=== PATIENT | male | born 1960 | race Caucasian/White ===

== ENCOUNTER 2018-12-10 20:10 | Observation (INO) ==
[2018-12-10] MEDS ORDERED: Pantoprazole 40 MG VIAL IVP ONE ×2 (20:15→20:26)
[2018-12-10] MEDS ORDERED: Octreotide 50 MCG/ML INJ IVP ONE (20:15)
[2018-12-10] MEDS ORDERED: cefTRIAXone 1,000 MG in Water for inj. (sterile) 10 ML IVP ONE (20:15)
[2018-12-10] MEDS ORDERED: 0.9 % Sodium Chloride 1,000 ML IVC ONE ×2 (20:15→21:08)
[2018-12-10] MEDS ORDERED: *HR* LORazepam 2 MG/ML VIAL IVP ONE (20:15)
[2018-12-10] MEDS ORDERED: Ondansetron 4 MG/2 ML VIAL IVP ONE (20:18)
--- NOTE | 2018-12-10 20:19 | Emergency Department Note ---
Disposition Clinical Impression: Alcohol withdrawal Qualifiers: Complication of substance-induced condition: with unspecified complication Qualified Code(s): F10.239 - Alcohol dependence with withdrawal, unspecified Gastritis Qualifiers: Gastritis type: alcoholic Chronicity: acute Gastritis bleeding: presence of bleeding unspecified Qualified Code(s): K29.20 - Alcoholic gastritis without bleeding Disposition: Admitted As Inpatient Condition: Good Referrals: Israel Landis DO [Primary Care Provider] - Forms: ED Satisfaction Letter Time of Disposition: 23:15 General Adult HPI - General Stated complaint: vomiting blood Time Seen by Provider: 12/10/18 20:13 Nursing Notes Reviewed: Yes Vital Signs Reviewed: Yes - History of Present Illness HPI Narrative: 57-year-old male presents emergency Department concern for nausea, vomiting, not feeling well. Patient reports being a chronic alcoholic and drinking a pint of vodka daily. Reports that because of the vomiting has not been able to drink as well. Patient states that he typically drinks still he passes out. Patient not complaining of any pain at this time. - Related Data Home Medications Medication Instructions Recorded Confirmed Albuterol Sulfate [Proventil 2 puff IH Q4H PRN 01/25/17 01/25/17 Inhaler] Aspirin 81 mg PO DAILY 01/25/17 01/25/17 Escitalopram [Lexapro] 20 mg PO DAILY 01/25/17 01/25/17 Lisinopril [Zestril] 10 mg PO DAILY 01/25/17 01/25/17 Omeprazole [PriLOSEC] 40 mg PO DAILY 01/25/17 01/25/17 hydroCHLOROthiazide 25 mg PO DAILY 01/25/17 01/25/17 [Hydrochlorothiazide] Previous Rx's Medication Instructions Recorded Tramadol HCl [Ultram] 50 mg PO QID PRN #28 tab 01/25/17 Diclofenac Sodium [Voltaren] 50 mg PO Q8HR PRN #20 tablet. 06/28/18 Allergies Allergy/AdvReac Type Severity Reaction Status Date / Time No Known Allergies Allergy Verified 06/28/18 09:31 All systems ED: reviewed and negative except as stated. Review of Systems: As Per HPI Constitutional: Denies: fever Cardiovascular: Denies: chest pain Respiratory: Denies: dyspnea Gastrointestinal: Reports: nausea, vomiting, other (Coffee-ground emesis) Genitourinary: Denies: urgency, dysuria, frequency Musculoskeletal: Denies: back pain Past Medical History - Past Medical History Attestation: Yes The following information was validated with the patient. Medical history: Reports: hypertension Surgical history: Reports: cholecystectomy Psychiatric history: Reports: anxiety, depression - Social History Smoking Status: Current every day smoker Smokeless Tobacco Status: No Alcohol use: Reports: occasionally Drug use: Reports: none Physical Exam - General Limitations: no limitations General appearance: alert - Head Head exam: normocephalic - Eye Eye exam: Present: EOMI - ENT ENT exam: mucous membranes moist - Neck Neck exam: Present: trachea midline - Chest Chest inspection: Present: symmetric chest wall rise - Respiratory Respiratory exam: Present: normal lung sounds bilaterally - Cardiovascular Cardiovascular exam: Present: normal rhythm, tachycardia, normal heart sounds - Abdominal Exam Abdominal exam: Present: soft, tenderness. Absent: distention, guarding, rebound, rigidity Abdominal tenderness: Present: epigastrium - Extremities Exam Extremities exam: Present: normal capillary refill - Back Exam Back exam: Present: full ROM - Neurological Exam Neurological exam: Present: alert, oriented X3 - Psychiatric Psychiatric exam: Present: normal affect, normal mood - Skin Skin exam: Present: warm, dry, intact, normal color. Absent: rash Course Vital Signs Temperature 98.5 F 12/10/18 20:26 Pulse Rate 134 12/10/18 20:26 Respiratory Rate 21 12/10/18 20:26 Blood Pressure 147/103 12/10/18 20:26 O2 Sat by Pulse Oximetry 97 12/10/18 20:26 Temperature 98.5 F 12/10/18 20:26 Pulse Rate 117 12/10/18 22:01 Respiratory Rate 19 12/10/18 22:01 Blood Pressure 146/93 12/10/18 22:01 O2 Sat by Pulse Oximetry 98 12/10/18 22:01 Oxygen Delivery Oxygen Delivery Room Air Medical Decision Making - [facility] Narrative Medical decision making narrative: 57-year-old male presents to the emergency department concern for coffee-ground emesis, nausea, vomiting. Patient initially tachycardic. He is also hypertensive. At this time, most likely concern for ethanol withdrawal. Because coffee-ground emesis in the setting of a chronic alcoholic, with a tachycardia, initial concern was for the possibility of variceal bleed. Patient has no history of bases prior. Hemoglobin was 18, most likely secondary to dehydration. We did obtain a CT angiogram of the abdomen and pelvis with a possible GI bleed to look for active extravasation. Patient was initially given 80 mg of protonix, octreotide, Rocephin. CT angiogram negative for evidence of active extravasation, dissection, aneurysm of the aorta. There is some evidence of some calcified atherosclerotic plaques. Told the family about these. Spoke with the hospitalist about admission prior to having CT scan results back. Have message him through [facility] to report negative CT findings. Patient started on 150 mL of normal saline per hour for maintenance fluids for his dehydration. Abdomen/Pelvis CTA 12/10/18 22:45 IMPRESSION: No evidence of an abdominal aortic aneurysm or dissection. No contrast extravasation along the included esophagus, stomach or any rales along the included GI tract as a source for upper GI bleeding. Mixed calcified atherosclerotic plaque results in moderate stenosis of the proximal left common iliac artery. Hepatic steatosis. D/ / 12/10/2018 23:00:09 Taye Bustamante / chad Interpreting Provider: Taye Bustamante Chest X-Ray 12/10/18 22:54 IMPRESSION: No acute abnormality identified. D/ / Ja Yancey MD / Ja Yancey MD Interpreting Provider: Ja Yancey MD - Lab Data Result diagrams: 12/10/18 20:39 12/10/18 20:39 Lab Results 12/10/18 12/10/18 12/10/18 Range/Units 20:39 20:39 20:39 WBC 10.1 (4.3-11.1) K/mcL RBC 5.70 H (4.19-5.50) M/mcL Hgb 18.3 H (12.9-16.9) g/dL Hct 51.3 H (37.5-50.1) % MCV 90.0 (83.0-100.0) fL MCH 32.1 (28.0-33.3) pg MCHC 35.7 H (31.6-35.5) g/dL RDW 12.6 (11.5-14.5) % Plt Count 363 (140-400) K/mcL MPV 8.6 L (9.4-12.4) fL Immature Gran % 0.3 (0-4) % Seg Neutrophils % 79.9 % Lymphocytes % 11.3 % Monocytes % 7.2 % Eosinophils % 0.4 % Basophils % 0.9 % Neutrophils # 8.1 (1.6-8.9) K/mcL Lymphocytes # 1.1 (0.6-4.6) K/mcL Monocytes # 0.7 (0.0-1.3) K/mcL Eosinophils # 0.0 (0.0-0.6) K/mcL Basophils # 0.1 (0.0-0.2) K/mcL PT 10.4 (9.4-12.1) Seconds INR 0.9 APTT 39.7 H (26.0-36.0) Seconds Sodium 137 (136-145) mEq/L Potassium 3.6 (3.5-5.1) mEq/L Chloride 95 L (98-107) mEq/L Carbon Dioxide 13 L (23-29) mEq/L BUN 10 (6-20) mg/dL Creatinine 0.66 L (0.70-1.30) mg/dL Est GFR ( Amer) > 60 (> 60) Est GFR (Non-Af Amer) > 60 (> 60) BUN/Creatinine Ratio 15 (6-26) Glucose 96 (70-105) mg/dL Calculated Osmolality 283 (280-300) Lactic Acid (0.5-2.2) mmol/L Calcium 8.5 L (8.6-10.3) mg/dL Total Bilirubin 0.8 (0.3-1.0) mg/dL AST 123 H (13-39) Units/L ALT 63 H (7-52) Units/L Alkaline Phosphatase 177 H (34-104) Units/L Troponin I < 0.03 (< 0.04) ng/mL Serum Total Protein 7.4 (6.4-8.9) g/dL Albumin 4.5 (3.5-5.7) g/dL Globulin 2.9 (2.4-3.5) g/dL Albumin/Globulin Ratio 1.6 (1.1-2.2) Lipase 70 (11-82) Units/L Blood Type Antibody Screen 12/10/18 12/10/18 Range/Units 20:39 20:39 WBC (4.3-11.1) K/mcL RBC (4.19-5.50) M/mcL Hgb (12.9-16.9) g/dL Hct (37.5-50.1) % MCV (83.0-100.0) fL MCH (28.0-33.3) pg MCHC (31.6-35.5) g/dL RDW (11.5-14.5) % Plt Count (140-400) K/mcL MPV (9.4-12.4) fL Immature Gran % (0-4) % Seg Neutrophils % % Lymphocytes % % Monocytes % % Eosinophils % % Basophils % % Neutrophils # (1.6-8.9) K/mcL Lymphocytes # (0.6-4.6) K/mcL Monocytes # (0.0-1.3) K/mcL Eosinophils # (0.0-0.6) K/mcL Basophils # (0.0-0.2) K/mcL PT (9.4-12.1) Seconds INR APTT (26.0-36.0) Seconds Sodium (136-145) mEq/L Potassium (3.5-5.1) mEq/L Chloride (98-107) mEq/L Carbon Dioxide (23-29) mEq/L BUN (6-20) mg/dL Creatinine (0.70-1.30) mg/dL Est GFR ( Amer) (> 60) Est GFR (Non-Af Amer) (> 60) BUN/Creatinine Ratio (6-26) Glucose (70-105) mg/dL Calculated Osmolality (280-300) Lactic Acid 5.0 H* (0.5-2.2) mmol/L Calcium (8.6-10.3) mg/dL Total Bilirubin (0.3-1.0) mg/dL AST (13-39) Units/L ALT (7-52) Units/L Alkaline Phosphatase (34-104) Units/L Troponin I (< 0.04) ng/mL Serum Total Protein (6.4-8.9) g/dL Albumin (3.5-5.7) g/dL Globulin (2.4-3.5) g/dL Albumin/Globulin Ratio (1.1-2.2) Lipase (11-82) Units/L Blood Type A POSITIVE Antibody Screen NEGATIVE - EKG Data EKG #1 EKG attestation: Yes I reviewed and interpreted this EKG. EKG results narrative: 20:16 Heart rate 138, QRS duration 90, FL 116, QTc 570, left axis deviation.
[2018-12-10] MEDS ORDERED: Thiamine (B-1) 100 MG in 0.9 % Sodium Chloride 50 ML IVPB STA (20:23)
[2018-12-10] MEDS ORDERED: Isovue-370 500 ML BOTTLE IVP ONE (20:25)
[2018-12-10 20:55] LABS: Basophils # 0.1 K/mcL (0.0-0.2); Basophils % 0.9 %; Eosinophils % 0.4 %; Hematocrit 51.3 % (37.5-50.1); Hemoglobin 18.3 g/dL (12.9-16.9); Immature Granulocytes % 0.3 % (0-4); Lymphocytes # 1.1 K/mcL (0.6-4.6); Lymphocytes % 11.3 %; Mean Corpuscular HGB Conc 35.7 g/dL (31.6-35.5); Mean Corpuscular Hemoglobin 32.1 pg (28.0-33.3); Mean Platelet Volume 8.6 fL (9.4-12.4); Monocytes # 0.7 K/mcL (0.0-1.3); Monocytes % 7.2 %; Neutrophils # 8.1 K/mcL (1.6-8.9); Platelet Count 363 K/mcL (140-400); Red Cell Distribution Width 12.6 % (11.5-14.5); Segmented Neutrophils % 79.9 %; White Blood Count 10.1 K/mcL (4.3-11.1)
[2018-12-10 21:07] LABS: INR 0.9; Prothrombin Time 10.4 Seconds (9.4-12.1)
[2018-12-10 21:09] LABS: Activated Partial Thrombo Time 39.7 Seconds (26.0-36.0)
[2018-12-10 21:17] LABS: Alanine Aminotransferase 63 Units/L (7-52); Albumin 4.5 g/dL (3.5-5.7); Albumin/Globulin Ratio 1.6 (1.1-2.2); Alkaline Phosphatase 177 Units/L (34-104); Aspartate Amino Transferase 123 Units/L (13-39); BUN/Creatinine Ratio 15 (6-26); Bilirubin,Total 0.8 mg/dL (0.3-1.0); Blood Urea Nitrogen 10 mg/dL (6-20); Calcium 8.5 mg/dL (8.6-10.3); Carbon Dioxide 13 mEq/L (23-29); Chloride 95 mEq/L (98-107); Globulin 2.9 g/dL (2.4-3.5); Glucose 96 mg/dL (70-105); Lipase 70 Units/L (11-82); Osmolality,Calculated 283 (280-300); Potassium 3.6 mEq/L (3.5-5.1); Sodium 137 mEq/L (136-145); Total Protein 7.4 g/dL (6.4-8.9); eGFR For African Americans > 60 (> 60); eGFR For Non-African Americans > 60 (> 60)
[2018-12-10 21:18] LABS: Troponin I < 0.03 ng/mL (< 0.04)
--- NOTE | 2018-12-10 22:52 | Emergency Department Note ---
Disposition Clinical Impression: Alcohol withdrawal Qualifiers: Complication of substance-induced condition: with unspecified complication Qualified Code(s): F10.239 - Alcohol dependence with withdrawal, unspecified Disposition: Still a Patient Condition: Good Referrals: Israel Landis DO [Primary Care Provider] - Time of Disposition: 22:53 General Adult HPI - General Chief complaint: ED Nausea/Vomiting/Diarrhea Stated complaint: vomiting blood Time Seen by Provider: 12/10/18 20:13 Source: EMS Limitations: no limitations - History of Present Illness Pain Scale: 0 - Related Data Home Medications Medication Instructions Recorded Confirmed Albuterol Sulfate [Proventil 2 puff IH Q4H PRN 01/25/17 01/25/17 Inhaler] Aspirin 81 mg PO DAILY 01/25/17 01/25/17 Escitalopram [Lexapro] 20 mg PO DAILY 01/25/17 01/25/17 Lisinopril [Zestril] 10 mg PO DAILY 01/25/17 01/25/17 Omeprazole [PriLOSEC] 40 mg PO DAILY 01/25/17 01/25/17 hydroCHLOROthiazide 25 mg PO DAILY 01/25/17 01/25/17 [Hydrochlorothiazide] Previous Rx's Medication Instructions Recorded Tramadol HCl [Ultram] 50 mg PO QID PRN #28 tab 01/25/17 Diclofenac Sodium [Voltaren] 50 mg PO Q8HR PRN #20 tablet. 06/28/18 Allergies Allergy/AdvReac Type Severity Reaction Status Date / Time No Known Allergies Allergy Verified 06/28/18 09:31 Constitutional: Denies: fever Cardiovascular: Denies: chest pain Respiratory: Denies: dyspnea Gastrointestinal: Reports: nausea, vomiting, other (Coffee-ground emesis) Genitourinary: Denies: urgency, dysuria, frequency Musculoskeletal: Denies: back pain Past Medical History - Past Medical History Medical history: Reports: hypertension Surgical history: Reports: cholecystectomy Psychiatric history: Reports: anxiety, depression - Social History Smoking Status: Current every day smoker Smokeless Tobacco Status: No Alcohol use: Reports: occasionally Drug use: Reports: marijuana Physical Exam - General Limitations: no limitations General appearance: alert Course Vital Signs Temperature 98.5 F 12/10/18 20:26 Pulse Rate 134 12/10/18 20:26 Respiratory Rate 21 12/10/18 20:26 Blood Pressure 147/103 12/10/18 20:26 O2 Sat by Pulse Oximetry 97 12/10/18 20:26 Temperature 98.5 F 12/10/18 20:26 Pulse Rate 117 12/10/18 22:01 Respiratory Rate 19 12/10/18 22:01 Blood Pressure 146/93 12/10/18 22:01 O2 Sat by Pulse Oximetry 98 12/10/18 22:01 Oxygen Delivery Oxygen Delivery Room Air Medical Decision Making - Lab Data Result diagrams: 12/10/18 20:39 12/10/18 20:39 Lab Results 12/10/18 12/10/18 12/10/18 Range/Units 20:39 20:39 20:39 WBC 10.1 (4.3-11.1) K/mcL RBC 5.70 H (4.19-5.50) M/mcL Hgb 18.3 H (12.9-16.9) g/dL Hct 51.3 H (37.5-50.1) % MCV 90.0 (83.0-100.0) fL MCH 32.1 (28.0-33.3) pg MCHC 35.7 H (31.6-35.5) g/dL RDW 12.6 (11.5-14.5) % Plt Count 363 (140-400) K/mcL MPV 8.6 L (9.4-12.4) fL Immature Gran % 0.3 (0-4) % Seg Neutrophils % 79.9 % Lymphocytes % 11.3 % Monocytes % 7.2 % Eosinophils % 0.4 % Basophils % 0.9 % Neutrophils # 8.1 (1.6-8.9) K/mcL Lymphocytes # 1.1 (0.6-4.6) K/mcL Monocytes # 0.7 (0.0-1.3) K/mcL Eosinophils # 0.0 (0.0-0.6) K/mcL Basophils # 0.1 (0.0-0.2) K/mcL PT 10.4 (9.4-12.1) Seconds INR 0.9 APTT 39.7 H (26.0-36.0) Seconds Sodium 137 (136-145) mEq/L Potassium 3.6 (3.5-5.1) mEq/L Chloride 95 L (98-107) mEq/L Carbon Dioxide 13 L (23-29) mEq/L BUN 10 (6-20) mg/dL Creatinine 0.66 L (0.70-1.30) mg/dL Est GFR ( Amer) > 60 (> 60) Est GFR (Non-Af Amer) > 60 (> 60) BUN/Creatinine Ratio 15 (6-26) Glucose 96 (70-105) mg/dL Calculated Osmolality 283 (280-300) Lactic Acid (0.5-2.2) mmol/L Calcium 8.5 L (8.6-10.3) mg/dL Total Bilirubin 0.8 (0.3-1.0) mg/dL AST 123 H (13-39) Units/L ALT 63 H (7-52) Units/L Alkaline Phosphatase 177 H (34-104) Units/L Troponin I < 0.03 (< 0.04) ng/mL Serum Total Protein 7.4 (6.4-8.9) g/dL Albumin 4.5 (3.5-5.7) g/dL Globulin 2.9 (2.4-3.5) g/dL Albumin/Globulin Ratio 1.6 (1.1-2.2) Lipase 70 (11-82) Units/L Blood Type Antibody Screen 12/10/18 12/10/18 Range/Units 20:39 20:39 WBC (4.3-11.1) K/mcL RBC (4.19-5.50) M/mcL Hgb (12.9-16.9) g/dL Hct (37.5-50.1) % MCV (83.0-100.0) fL MCH (28.0-33.3) pg MCHC (31.6-35.5) g/dL RDW (11.5-14.5) % Plt Count (140-400) K/mcL MPV (9.4-12.4) fL Immature Gran % (0-4) % Seg Neutrophils % % Lymphocytes % % Monocytes % % Eosinophils % % Basophils % % Neutrophils # (1.6-8.9) K/mcL Lymphocytes # (0.6-4.6) K/mcL Monocytes # (0.0-1.3) K/mcL Eosinophils # (0.0-0.6) K/mcL Basophils # (0.0-0.2) K/mcL PT (9.4-12.1) Seconds INR APTT (26.0-36.0) Seconds Sodium (136-145) mEq/L Potassium (3.5-5.1) mEq/L Chloride (98-107) mEq/L Carbon Dioxide (23-29) mEq/L BUN (6-20) mg/dL Creatinine (0.70-1.30) mg/dL Est GFR ( Amer) (> 60) Est GFR (Non-Af Amer) (> 60) BUN/Creatinine Ratio (6-26) Glucose (70-105) mg/dL Calculated Osmolality (280-300) Lactic Acid 5.0 H* (0.5-2.2) mmol/L Calcium (8.6-10.3) mg/dL Total Bilirubin (0.3-1.0) mg/dL AST (13-39) Units/L ALT (7-52) Units/L Alkaline Phosphatase (34-104) Units/L Troponin I (< 0.04) ng/mL Serum Total Protein (6.4-8.9) g/dL Albumin (3.5-5.7) g/dL Globulin (2.4-3.5) g/dL Albumin/Globulin Ratio (1.1-2.2) Lipase (11-82) Units/L Blood Type A POSITIVE Antibody Screen NEGATIVE Attestation Statement - Attestation Attestation: I reviewed the residents documentation and agree with the residents assessment and plan of care. I have personally had face to face time with the patient. (Brief History, Brief Exam, and MDM) I personally supervised and was present for the fung/critical portions of the following procedures completed by the resident: EKG 57 year old male presents to the ED with complaints of vomitting blood and is a chronic alcoholic and appears to be going through withdrawl and is otherwise mildly hypertensive. He is not actively vomiting as this time and he otheriwse is not anemic and is improving with IVF and ativan therapy with his vitals. CT pending. This is likely alcohol withdrawl with severe gastritis presentation and we have treated with rocephin, protoinix, and octreotide. We have dicussed case with hospitalist and he will accept patinet after CT scan results have restulted. WE will sign patient out to the night doctor Dr. Singleton for followup on CT scan and it is curenlty pending and update the hospitalist on the case. The concern for the CT scan is to rule out esophagel varices. This is a rate limiting step because we otherise do not have coverage overnight for variceal bleed for banding of which is would then require transfer to a tertiary center.
[2018-12-10] MEDS: Octreotide 400 MCG in 0.9 % Sodium Chloride 100 ML IVP SCH (22:55)
[2018-12-10] MEDS ORDERED: 0.9 % Sodium Chloride 1,000 ML IVC STA (23:09)
[2018-12-10] MEDS ORDERED: *HR* LORazepam 2 MG/ML VIAL IVP PRN ×3 (23:16)
[2018-12-10 23:32] LABS: Bilirubin,Urine Negative (Negative); Blood,Urine Trace (Negative); Clarity,Urine Clear (Clear); Color,Urine Yellow (Yellow); Glucose,Urine (UA) Normal (Normal); Ketones,Urine 80 mg/dL (Negative); Leukocyte Esterase,Urine Negative (Negative); Nitrite,Urine Negative (Negative); PH,Urine 5.5 pH Units (5.0-8.0); Protein,Urine Trace mg/dL (Neg-Trace); Specific Gravity,Urine > 1.030 (1.010-1.025); Urobilinogen,Urine Normal (Normal)
[2018-12-10 23:34] LABS: Bacteria,Urine None Seen per hpf (None-Few); Hyaline Casts,Urine None Seen per lpf (None-Few); RBC,Urine 0-3 per hpf (0-3); Squamous Epithelial Cell,Urine Many per lpf (None-Few); WBC,Urine 0-3 per hpf (0-3)
[2018-12-11] MEDS ORDERED: Naloxone 0.4 MG/ML INJ IVP PRN (04:38)
--- NOTE | 2018-12-11 05:06 | Internal Med History&Physical ---
Date of Encounter: 12/11/18 Time of Encounter: 04:22 Internal Medicine - H&P: HPI Chief complaint: Hmatemesis Admitted From: Emergency Dept Plans for Post Hospital Care: Home History of present illness: Mr. Finney is a 57 year old male Patient presented to the emergency department after having an episode of vomiting at home. He has not been feeling well for the past few days, and may have had blood in his vomit. He drinks about one bottle of vodka daily, and has done so for quite some time. Ever since his he has been struggling at home. He does not eat, but drinks heavily every day until he pas ses out. Emergency department patient's vital signs: Temperature 98.5, pulse 134, respiratory rate 21, blood pressure 147/103, O2 saturation 97% on room air. CBC: White blood count 10.1, hemoglobin 18.3, platelets 363. BMP: Sodium 137, potassium 3.6, chloride 95, bicarbonate 13, creatinine 0.66, gl ucose 96. Initial lactic acid 5.0, improved to 1.2 Total bilirubin 0.8 AST 123 ALT 63 Alkaline phosphatase 177 Troponin undetectable Lipase 70 Urinalysis: Elevated specific gravity, ketones 80, blood trace, negative nitrite and negative leukocyte esterase negative bacteria. Chest x-ray showed no acute abnormality CT angiogram of the abdomen and pelvis: IMPRESSION: No evidence of an abdominal aortic aneurysm or dissection. No contrast extravasation along the included esophagus, stomach or any rales along the included GI tract as a source for upper GI bleeding. Mixed calcified atherosclerotic plaque results in moderate stenosis of the proximal left common iliac artery. Hepatic steatosis. EKG: Sinus tachycardia, rate 138, QTC [address] elevations. In the emergency department patient was given 2 L of IV fluids, and started on CIWA protocol. He was also started on an octreotide drip and given IV Protonix. He was also given ceftriaxone. Blood cultures were not obtained prior to antibiotics. He is admitted to the hospital for further management of his possible alcohol withdrawal and hematemesis. Upon my evaluation, patient is resting comfortably in the hospital bed in no acute distress. He denies chest pain, abdominal pain, nausea, vomiting, diarrhea and constipation. He denies ever previously going through alcohol withdrawal. He says it has been a very long time since he has ever been without alcohol for more than a couple of days. His last drink was about 3 days ago. He is a pack per day cigarette smoker as well. He denies contributable family medical history. He is a full code. Past Med Surg Social Fam HX - Past Medical History Medical history: hypertension Additional medical history: lower back pain Psychiatric history: anxiety, depression - Past Surgical History Surgical History: cholecystectomy - Social History Smoking Status: Current every day smoker Smokeless Tobacco Status: No Alcohol use: heavy Drug use: marijuana Internal Medicine - H&P: Meds Albuterol Sulfate [Proventil Inhaler] 2 puff IH Q4H PRN 01/25/17 [History] Aspirin 81 mg PO DAILY 01/25/17 [History] Escitalopram [Lexapro] 20 mg PO DAILY 01/25/17 [History] Lisinopril [Zestril] 10 mg PO DAILY 01/25/17 [History] Omeprazole [PriLOSEC] 40 mg PO DAILY 01/25/17 [History] Tramadol HCl [Ultram] 50 mg PO QID PRN #28 tab 01/25/17 [Rx] hydroCHLOROthiazide [Hydrochlorothiazide] 25 mg PO DAILY 01/25/17 [History] Diclofenac Sodium [Voltaren] 50 mg PO Q8HR PRN #20 tablet. 06/28/18 [Rx] Allergy/AdvReac Type Severity Reaction Status Date / Time No Known Allergies Allergy Verified 06/28/18 09:31 All Systems PM: A 10-system review of systems was performed and is negative for pertinent findings except as documented above in the HPI. - Constitutional Vitals: Temp Pulse Resp BP Pulse Ox 98.3 F 109 15 152/86 94 12/11/18 04:20 12/11/18 04:20 12/11/18 04:20 12/11/18 04:20 12/11/18 04:20 General appearance: Present: cooperative, A&O X 3, pleasant, no acute distress, answers questions appropriately Exam: - - Head Head exam: Present: normal inspection - Eye Eye exam: Present: EOMI, normal appearance - Respiratory Respiratory exam: Present: decreased breath sounds, CTAB. Absent: rales, respiratory distress, rhonchi, wheezes - Cardiovascular Cardiovascular exam: Present: RRR. Absent: diastolic murmur, systolic murmur - GI/Abdominal GI/Abdominal exam: Present: normal bowel sounds, soft. Absent: tenderness - Extremities Exam Extremities exam: Present: warm, radial pulses palpable and symmetrical. Absent: calf tenderness, pedal edema, tenderness - Neurological Exam Neurological exam: Present: alert, no focal deficits, strengths equal and symetr throughout. Absent: altered, motor sensory deficit, pronater drift, facial droop, speech deficit Additional comments: No tremor noted - Skin Skin exam: Present: dry, normal color, warm Internal Med - H&P Results - Labs CBC & Chem 7: 12/10/18 20:39 12/10/18 20:39 Labs: Short CBC 12/10/18 Range/Units 20:39 WBC 10.1 (4.3-11.1) K/mcL Hgb 18.3 H (12.9-16.9) g/dL Hct 51.3 H (37.5-50.1) % Plt Count 363 (140-400) K/mcL Neutrophils # 8.1 (1.6-8.9) K/mcL BMP 12/10/18 20:39 Sodium 137 Potassium 3.6 Chloride 95 L Carbon Dioxide 13 L BUN 10 Creatinine 0.66 L Glucose 96 Calcium 8.5 L Cardiac Enzymes 12/10/18 Range/Units 20:39 Troponin I < 0.03 (< 0.04) ng/mL Liver Function 12/10/18 Range/Units 20:39 Total Bilirubin 0.8 (0.3-1.0) mg/dL AST 123 H (13-39) Units/L ALT 63 H (7-52) Units/L Alkaline Phosphatase 177 H (34-104) Units/L Albumin 4.5 (3.5-5.7) g/dL Urine 12/10/18 Range/Units 23:22 Urine Color Yellow (Yellow) Urine Clarity Clear (Clear) Urine pH 5.5 (5.0-8.0) pH Units Ur Specific [place] > 1.030 H (1.010-1.025) Urine Protein Trace (Neg-Trace) mg/dL Urine Glucose (UA) Normal (Normal) mg/dL - Impressions ITS Impressions Abdomen/Pelvis CTA 12/10/18 22:45 IMPRESSION: No evidence of an abdominal aortic aneurysm or dissection. No contrast extravasation along the included esophagus, stomach or any rales along the included GI tract as a source for upper GI bleeding. Mixed calcified atherosclerotic plaque results in moderate stenosis of the proximal left common iliac artery. Hepatic steatosis. D/ / 12/10/2018 23:00:09 Taye Bustamante / chad Interpreting Provider: Taye Bustamante Chest X-Ray 12/10/18 22:54 IMPRESSION: No acute abnormality identified. D/ / Ja Yancey MD / Ja Yancey MD Interpreting Provider: Ja Yancey MD - Assessment and Plan (1) Gastritis Current Visit: Yes Status: Acute Assessment and plan: Possible blood in the patient's vomitus. Hemoglobin stable. Patient has had colonoscopy performed in the past and says that he had polyps. He has never had an upper GI scope performed however. He was given Protonix in the emergency department as well as an octreotide drip. Continue octreotide Continue Protonix GI consultation the morning Continue to monitor hemoglobin Repeat a.m. labs Qualifiers: Gastritis type: alcoholic Chronicity: acute Gastritis bleeding: with bleeding Qualified Code(s): K29.21 - Alcoholic gastritis with bleeding (2) Alcohol withdrawal Current Visit: Yes Status: Acute Assessment and plan: Patient is never been through alcoholic all previously. Drinks about 1 bottle of vodka daily. Last drink was about 3 days ago. No signs of withdrawal on exam, no tremor. Patient denies hallucinations. Continue CIWA protocol Cardiac telemetry IV thiamine Social work consult for alcoholism assistance Qualifiers: Complication of substance-induced condition: with unspecified complication Qualified Code(s): F10.239 - Alcohol dependence with withdrawal, unspecified (3) Prolonged QT interval Current Visit: Yes Status: Acute Assessment and plan: Patient's QTc was elevated at 570 ms. Cardiac telemetry Repeat EKG Avoid QT prolonging agents such as Phenergan and Zofran (4) Nicotine use disorder Current Visit: Yes Status: Acute Assessment and plan: Nicotine patch (5) DVT prophylaxis Current Visit: Yes Status: Acute Assessment and plan: SCDs - Time Spent With Patient Total time spent is greater than 50% in coordination of care (as documented) at patient's floor/unit and/or counseling patient: Greater than 35 minutes
[2018-12-11] MEDS: Nicotine 21 MG PATCH.TD24 TD SCH (05:24)
[2018-12-11] MEDS: Pantoprazole 40 MG VIAL IVP SCH ×2 (05:24→18:00)
[2018-12-11 05:25] LABS: Hematocrit 45.9 % (37.5-50.1); Mean Corpuscular HGB Conc 35.1 g/dL (31.6-35.5); Mean Corpuscular Hemoglobin 31.6 pg (28.0-33.3); Mean Corpuscular Volume 90.2 fL (83.0-100.0); Mean Platelet Volume 8.5 fL (9.4-12.4); Platelet Count 300 K/mcL (140-400); Red Blood Count 5.09 M/mcL (4.19-5.50); Red Cell Distribution Width 12.7 % (11.5-14.5); White Blood Count 5.4 K/mcL (4.3-11.1)
[2018-12-11 05:33] LABS: Hemoglobin 16.1 g/dL (12.9-16.9)
[2018-12-11 05:45] LABS: Troponin I < 0.03 ng/mL (< 0.04)
[2018-12-11 05:46] LABS: Alanine Aminotransferase 51 Units/L (7-52); Albumin 3.9 g/dL (3.5-5.7); Albumin/Globulin Ratio 1.6 (1.1-2.2); Alkaline Phosphatase 172 Units/L (34-104); Aspartate Amino Transferase 103 Units/L (13-39); BUN/Creatinine Ratio 11 (6-26); Bilirubin,Total 0.9 mg/dL (0.3-1.0); Blood Urea Nitrogen 7 mg/dL (6-20); Calcium 7.8 mg/dL (8.6-10.3); Carbon Dioxide 21 mEq/L (23-29); Chloride 103 mEq/L (98-107); Globulin 2.5 g/dL (2.4-3.5); Glucose 141 mg/dL (70-105); Osmolality,Calculated 280 (280-300); Potassium 4.1 mEq/L (3.5-5.1); Sodium 135 mEq/L (136-145); Total Protein 6.4 g/dL (6.4-8.9); eGFR For African Americans > 60 (> 60); eGFR For Non-African Americans > 60 (> 60)
--- NOTE | 2018-12-11 11:16 | Gastroenterology Consult Note ---
<Mandi Walters - Last Filed: 12/11/18 17:14> Date of Encounter: 12/11/18 Time of Encounter: 11:11 - Assessment and plan (1) Hematemesis Current Visit: Yes Status: Acute Assessment and plan: Presented to the ED on 12/10/18 complaining of hematemesis ongoing for the past few days Reports hematemesis started after he was drinking significant amount of vodka Additionally reports self-induced emesis Reports drinking 1 L or more of vodka daily for the past 1 month and has been drinking frequently since March after his passed He is interested in alcohol cessation and reports he does not have resources available at this time No further episodes of emesis or hematemesis since admission Denies any identification of dysphagia His INR was 0.9, does not take any anticoagulants at home CT of the abdomen and pelvis did not show any evidence of aortic aneurysm or dissection and no extravasation along the esophagus Denies any previous history of colonoscopy Hematemesis likely secondary to Archana-Savage tear given frequent alcohol use and retching Underwent EGD which showed esophagitis, biopsies taken, path pending Discussed with nursing for social work evaluation to receive resources for alcohol cessation We will check folate and B12 given chronic history of alcohol use Further recommendations by Dr. Hawkins Qualifiers: Nausea presence: with nausea Qualified Code(s): K92.0 - Hematemesis - Time Spent With Patient Total time spent is greater than 50% in coordination of care (as documented) at patient's floor/unit and/or counseling patient: GI History of Present Illness - Data of Consult Requesting Physician: Alma Inman MD - Consult Narrative History of present illness: Mr. Finney is a 57 year old male with past medical history of hypertension who presented to the ED after having hematemesis. And emesis for the past 7 days and states it started after she was drinking. Additionally, reports hematemesis has been ongoing for the past a few days. He does report drinking at least 1 L of vodka daily and has been drinking every single day for the past 1 month. Does report that he has been drinking very frequently since March after his . Since her passing he reports he is also had poor oral intake. Reports 67 pound weight loss since March. Denying any dysphagia or odynophagia. States that emesis has stopped since his admission to the hospital. In the ED he was noted to have hemoglobin of 18.3. His AST was 123, O2 63 with alkaline phosphatase 177 and total bilirubin 0.8. Had a CT of the abdomen which showed hepatic steatosis with moderate stenosis of proximal left common iliac artery. History of esophageal cancer in his father and colonic malignancy in his grandfather. There is no finding of abdominal aortic aneurysm or dissection or extravasation along the esophagus. This morning is resting comfortably in bed. He is denying any fever, chills, chest pain, nausea, sam sis, hemoptysis or abdominal pain. Past Med Surg Social Fam HX - Past Medical History Medical history: hypertension Additional medical history: lower back pain Psychiatric history: anxiety, depression - Past Surgical History Surgical History: cholecystectomy - Social History Smoking Status: Current every day smoker Smokeless Tobacco Status: No Alcohol use: heavy Drug use: marijuana - Gastrointestinal Gastrointestinal: Present: hematemesis (resolved). Absent: abdominal pain, nausea, vomiting - Constitutional Constitutional: weight loss, no fatigue - EENT Nose, mouth and throat: Absent: dysphagia, sore throat - Cardiovascular Cardiovascular ROS: Absent: chest pain, palpitations - Respiratory Respiratory IM: Absent: cough, dyspnea, hemoptysis - Neurological ROS Neurological GI: Absent: confusion, headache(s), weakness - Hematologic/Lymphatic Hematologic/Lymphatic pediatric: Absent: easy bleeding - Musculoskeletal Musculoskeletal ROS GI: Absent: back pain - Integumentary Integumentary GI: Absent: pruritis, rash - Psychiatric ROS Psychiatric GI: Present: depression - Constitutional Vitals: Temp Pulse Resp BP Pulse Ox 98.1 F 101 15 138/82 94 12/11/18 10:26 12/11/18 10:26 12/11/18 10:26 12/11/18 10:26 12/11/18 10:26 General appearance: Present: A&O X 3, no acute distress - Head Head exam: Present: atraumatic, normal inspection - Eye Eye exam: Present: EOMI, sclera anicteric. Absent: conjunctival injection - ENT ENT exam: Present: mucous membranes moist, normal oropharynx - Neck Neck exam general surgery: Present: full ROM, trachea midline - Respiratory Respiratory exam: Present: CTAB. Absent: rhonchi, wheezes - Cardiovascular Cardiovascular exam: Present: RRR, +S1, +S2 - GI/Abdominal GI/Abdominal exam: Present: normal bowel sounds, soft. Absent: firm, tenderness - Neurological Exam Neurological exam: Present: alert, oriented X3 - Psychiatric Psychiatric exam: Present: depressed, flat affect - Skin Skin exam: Present: dry, intact Results - Labs CBC & Chem 7: 12/11/18 05:08 12/11/18 05:08 Labs: Last Result 12/11/18 05:08 Calcium 7.8 L Troponin I < 0.03 Entire Visit 12/11/18 12/11/18 05:08 05:08 Hgb 16.1 D Hct 45.9 Total Bilirubin 0.9 AST 103 H ALT 51 - ABG ABG results: PT/INR, D-dimer PT 10.4 Seconds (9.4-12.1) 12/10/18 20:39 - Impressions Impressions Abdomen/Pelvis CTA 12/10/18 22:45 IMPRESSION: No evidence of an abdominal aortic aneurysm or dissection. No contrast extravasation along the included esophagus, stomach or any elsewhere along the included GI tract as a source for upper GI bleeding. Mixed calcified atherosclerotic plaque results in moderate stenosis of the proximal left common iliac artery. Hepatic steatosis. D/ / 12/10/2018 23:00:09 Taye Bustamante / chad Interpreting Provider: Taye Bustamante Chest X-Ray 12/10/18 22:54 IMPRESSION: No acute abnormality identified. D/ / Ja Yancey MD / Ja Yancey MD Interpreting Provider: Ja Yancey MD Consult Discharge Plan - Plan Referrals: Israel Landis DO [Primary Care Provider] - <Chayo Hawkins - Last Filed: 12/11/18 17:22> Date of Encounter: 12/11/18 Time of Encounter: 13:00 - Time Spent With Patient Total time spent is greater than 50% in coordination of care (as documented) at patient's floor/unit and/or counseling patient: GI History of Present Illness - Data of Consult Requesting Physician: Alma Inman MD - Consult Narrative History of present illness: Mr. Finney is a 57 year old male - Constitutional Vitals: Temp Pulse Resp BP Pulse Ox 98.0 F 94 15 120/75 96 12/11/18 14:51 12/11/18 14:51 12/11/18 14:51 12/11/18 14:51 12/11/18 14:51 Results - Labs CBC & Chem 7: 12/11/18 05:08 12/11/18 05:08 Labs: Last Result 12/11/18 12/11/18 05:08 11:25 Calcium 7.8 L Troponin I < 0.03 Vitamin B12 772 Folate 15.0 Entire Visit 12/11/18 12/11/18 12/11/18 05:08 05:08 11:25 Hgb 16.1 D Hct 45.9 Total Bilirubin 0.9 AST 103 H ALT 51 Folate 15.0 - ABG ABG results: PT/INR, D-dimer PT 10.4 Seconds (9.4-12.1) 12/10/18 20:39 - Impressions Impressions Abdomen/Pelvis CTA 12/10/18 22:45 IMPRESSION: No evidence of an abdominal aortic aneurysm or dissection. No contrast extravasation along the included esophagus, stomach or any elsewhere along the included GI tract as a source for upper GI bleeding. Mixed calcified atherosclerotic plaque results in moderate stenosis of the proximal left common iliac artery. Hepatic steatosis. D/ / 12/10/2018 23:00:09 Taye Bustamante / chad Interpreting Provider: Taye Bustamante Chest X-Ray 12/10/18 22:54 IMPRESSION: No acute abnormality identified. D/ / Ja Yancey MD / Ja Yancey MD Interpreting Provider: Ja Yancey MD - Attending Attestation I examined this patient and my medical decision-making was reviewed with the Resident Physician. I agree with the documented findings, disposition and treatment plan as described except to the extent set forth below. Patient seen. Denies any abdominal pain on examination: Abdomen is soft. Assessment: Patient with a history of alcoholism now with the hematemesis. Recommendation EGD to rule out upper GI causes for his hematemesis. Meanwhile follow H&H
--- NOTE | 2018-12-11 12:35 | Event Note ---
Date of Encounter: 12/11/18 Time of Encounter: 08:00 Patient has been seen and examined. He has not had any more episodes of hematemesis since admission. Has been seen by GI who agree that patient would benefit from an EGD. Patient's reports being depressed since the of his . Will consider psyce evaluation. Will continue to monitor.
[2018-12-11] MEDS: Octreotide 400 MCG in 0.9 % Sodium Chloride 100 ML IVP SCH (12:49)
[2018-12-11] MEDS ORDERED: *HR* Propofol 200 MG/20 ML VIAL IVP ONE (13:48)
[2018-12-11] MEDS ORDERED: Lidocaine -MPF 2% 2 ML VIAL ONE (13:48)
--- NOTE | 2018-12-11 13:52 | Anesthesia Evaluation PreOp ---
Date of Encounter: 12/11/18 Time of Encounter: 12:30 - Past History Planned Operation: EGD Cardiac History: ID (Distant Hx >10 yrs pt states cath negative), HTN (Not currently taking meds) Pulmonary History: Smoker (1PPD), Asthma (infrequent inhaler use) PATIENT ACCOUNT LIAISON History: Denies Any Significant HX Other Medical History: Denies Any Significant HX Anesthesia History: No Prior Anesthetic Complications Alcohol Use: heavy (DRINKS >= BOTTLE vodka daily) Drug use: marijuana Medications and Allergies Albuterol Sulfate [Proventil Inhaler] 2 puff IH Q4H PRN 01/25/17 [History] Escitalopram [Lexapro] 20 mg PO DAILY 01/25/17 [History] Omeprazole [PriLOSEC] 40 mg PO DAILY 01/25/17 [History] Amitriptyline [Elavil] 50 mg PO HS 12/11/18 [History] Meloxicam 7.5 mg PO BID 12/11/18 [History] Allergy/AdvReac Type Severity Reaction Status Date / Time No Known Allergies Allergy Verified 06/28/18 09:31 - Meds/Allergy Pre-op Review Medications Reviewed: Yes Allergies Reviewed: Yes Beta Blockers on Current Med List: No Anesthesia Results - Labs 12/11/18 05:08 12/11/18 05:08 Anesthesia Exam Vital Signs/O2 Sat/Glucose, Most Recent Temp Pulse Resp BP Pulse Ox 98.2 F 99 16 148/92 98 12/11/18 13:53 12/11/18 13:53 12/11/18 13:53 12/11/18 13:53 12/11/18 13:53 Blood Glucose* 112 Height: 1.68m Weight: 63kg NPO (# of Hours): >8hrs Pain Scale: 0 Pain Scale Used: Numeric (1 - 10) - HEENT Pupil (Motor): Pupils equal Mallampati: II Teeth: Edentulous Oral Opening: Greater than 3 - PATIENT ACCOUNT LIAISON PATIENT ACCOUNT LIAISON Motor: Normal RUE, Normal LUE, Normal RLE, Normal LLE, Normal Face PATIENT ACCOUNT LIAISON Sensory: Normal: RUE, LUE, RLE, LLE, Face - Cardiac Rhythm: Regular Murmur: None JVD: No Carotid Bruit: No - Pulmonary Breath Sounds: bilateral Clear Respiratory Effort: Symmetrical Anesthesia Assess/Plan ASA Score: 2 Level of consciousness: Cooperative, Oriented, Tranquil Anesthetic Plan: MAC Autologous Blood: Yes Monitoring Plan: Standard Monitors Recovery Plan: Other (Anesthesia plan discussed with patient and he agrees to MAC)
[2018-12-11] MEDS: 0.9 % Sodium Chloride 500 ML IVC SCH (13:58)
--- NOTE | 2018-12-11 15:53 | Electrocardiograph Report ---
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
--- NOTE | 2018-12-11 16:04 | Electrocardiograph Report ---
[address] [address] Test Date: 2018-12-11 Pat Name: Brayan Finney Department: 115 Room: 3A Gender: M Stock Speculator: : 1960 Requested By: Fahad Adamson Order Number: [id number] Reading MD: Mark Matos Measurements Intervals [place] Rate: 109 P: 73 LA: 177 QRS: -45 QRSD: 85 T: -3 QT: 332 QTc: 396 Interpretive Statements SINUS TACHYCARDIA POSSIBLE RIGHT VENTRICULAR CONDUCTION DELAY LEFT ANTERIOR FASCICULAR BLOCK NONSPECIFIC T-WAVE ABNORMALITY Electronically Signed On 12-11-2018 16:02:39 EDT by Mark Matos
[2018-12-11] MEDS ORDERED: Thiamine (B-1) 100 MG, Folic Acid 1 MG, MVI, adult with vitamin K 10 ML in 0.9 % Sodi... IVPB SCH (18:00)
[2018-12-11] MEDS ORDERED: Melatonin 3 MG TABLET PO PRN (22:34)
[2018-12-12] MEDS: 0.9 % Sodium Chloride 500 ML IVC SCH (01:53)
[2018-12-12 03:40] LABS: Basophils # 0.1 K/mcL (0.0-0.2); Eosinophils # 0.2 K/mcL (0.0-0.6); Eosinophils % 2.8 %; Hematocrit 44.4 % (37.5-50.1); Hemoglobin 15.7 g/dL (12.9-16.9); Immature Granulocytes % 0.3 % (0-4); Lymphocytes # 1.6 K/mcL (0.6-4.6); Lymphocytes % 25.4 %; Mean Corpuscular HGB Conc 35.4 g/dL (31.6-35.5); Mean Corpuscular Hemoglobin 31.9 pg (28.0-33.3); Mean Corpuscular Volume 90.2 fL (83.0-100.0); Mean Platelet Volume 9.3 fL (9.4-12.4); Monocytes # 0.4 K/mcL (0.0-1.3); Neutrophils # 3.9 K/mcL (1.6-8.9); Nucleated Red Blood Cells 0.8 /100 WBC (0); Platelet Count 258 K/mcL (140-400); Red Blood Count 4.92 M/mcL (4.19-5.50); Red Cell Distribution Width 12.7 % (11.5-14.5); Segmented Neutrophils % 63.5 %; White Blood Count 6.2 K/mcL (4.3-11.1)
[2018-12-12 03:57] LABS: BUN/Creatinine Ratio 7 (6-26); Blood Urea Nitrogen 4 mg/dL (6-20); Calcium 8.8 mg/dL (8.6-10.3); Carbon Dioxide 26 mEq/L (23-29); Chloride 99 mEq/L (98-107); Glucose 95 mg/dL (70-105); Osmolality,Calculated 281 (280-300); Potassium 3.5 mEq/L (3.5-5.1); Sodium 137 mEq/L (136-145); eGFR For African Americans > 60 (> 60); eGFR For Non-African Americans > 60 (> 60)
[2018-12-12] MEDS: Nicotine 21 MG PATCH.TD24 TD SCH (04:32)
[2018-12-12] MEDS: Octreotide 400 MCG in 0.9 % Sodium Chloride 100 ML IVP SCH (04:32)
[2018-12-12] MEDS: Pantoprazole 40 MG VIAL IVP SCH (05:31)
[2018-12-12] MEDS ORDERED: NON-FORMULARY MEDICATION 1 EACH EACH (Omeprazole [Prilosec] 40 MG) PO SCH (09:00)
--- NOTE | 2018-12-12 09:02 | Discharge Summary ---
- NOTES TO OUTPATIENT PROVIDER Notes to Outpatient Provider: To see Gastroenterologit in 2 weeks. EGD suspicious for eosinophilic esophagitis. Gastritis. Discharged on 2 weeks course of PPIs. Orders not resulted at time of discharge: Pending orders 12/11/18 14:25 Surgical Pathology [PTH] Routine Date of Encounter: 12/12/18 Time of Encounter: 08:59 - Discharge Diagnosis (1) Gastritis Priority: Primary Status: Acute Qualifiers: Gastritis type: alcoholic Chronicity: acute Gastritis bleeding: with bleeding Qualified Code(s): K29.21 - Alcoholic gastritis with bleeding (2) Alcohol withdrawal Priority: Secondary Status: Acute Qualifiers: Complication of substance-induced condition: with unspecified complication Qualified Code(s): F10.239 - Alcohol dependence with withdrawal, unspecified (3) Prolonged QT interval Priority: Secondary Status: Acute (4) Nicotine use disorder Priority: Secondary Status: Acute (5) DVT prophylaxis Priority: Secondary Status: Acute Hospital course: Mr. Finney is a 57 year old male with past medical history of alcohol use disorder, GERD and depression presented with coffee-ground emesis. EGD done during hospital stay showed mucosa suspicious of eosinophilic esophagitis. Gastritis was also diagnosed. No active bleeding observed. Patient will be discharged on 2 weeks of pantoprazole 40 mg daily to follow up with GI as outpatient. Patient also expresses interest in starting rehabilitation for alcohol with the [facility]. We will discuss with case management to set this up for patient. Discharge discussed with: patient, nurse, social work, case management - Time Spent with Patient Total time spent providing and/or coordinating discharge services: Time spent: Greater than 30 minutes (35 minutes) - Discharge Medications Prescriptions: New Pantoprazole Sodium [Protonix] 40 mg PO DAILY #14 tablet.dr Continued Albuterol Sulfate [Proventil Inhaler] 2 puff IH Q4H PRN PRN Reason: Shortness Of Breath Escitalopram [Lexapro] 20 mg PO DAILY Amitriptyline [Elavil] 50 mg PO HS Discontinued Omeprazole [PriLOSEC] 40 mg PO DAILY Meloxicam 7.5 mg PO BID Home Medications: Albuterol Sulfate [Proventil Inhaler] 2 puff IH Q4H PRN 01/25/17 [History] Escitalopram [Lexapro] 20 mg PO DAILY 01/25/17 [History] Amitriptyline [Elavil] 50 mg PO HS 12/11/18 [History] Pantoprazole Sodium [Protonix] 40 mg PO DAILY #14 tablet. 12/12/18 [Rx] Allergies/Adverse Reactions: Allergy/AdvReac Type Severity Reaction Status Date / Time No Known Allergies Allergy Verified 06/28/18 09:31 Date of admission: 12/10/18 23:39 Primary care physician: Israel Landis Consults: 12/10/18 23:16 Consult to Technology Sales Representative [CONS] Routine Reason for SW Consult: alcoholism, Pt states he would like to go to the [facility] for help with his alcoholism. 12/10/18 23:41 Consult to Gastroenterology [CONS] Stat Consulting Provider: Gastroenterology Thea Reason for Consult: Hematemesis Time Notified: 23:42 Call Completed: No 12/11/18 01:05 Consult to Nutrition [CONS] Routine Comment: Consulting Provider: NUTRITION Reason for Dietary Consult: MST Score 12/11/18 10:39 Consult to Psychiatry [CONS] Routine Consulting Provider: Psychiatry Thea Reason consult: Other Other reason and/or additional details: pt very depressed about dying and drinking more alcohol to self medicate. - Constitutional Vitals: Temp Pulse Resp BP Pulse Ox 36.9 C 79 18 143/87 94 12/12/18 06:57 12/12/18 06:57 12/12/18 06:57 12/12/18 06:57 12/12/18 06:57 General appearance: Present: cooperative, A&O X 3, pleasant, no acute distress, answers questions appropriately Exam: GENERAL: Not in distress. Alert and Oriented HEENT: EOMI, PERRLA MOUTH: Moist oral mucosa NECK:No JVD, No lymph nodes. CHEST AND LUNGS: Normal breath sounds, no wheezes or crackles HEART: S1 and S2 normal, no murmurs ABDOMEN: Soft, nontender, no organomegaly SKIN: Normal color, no rahses, no lesions EXTREMITIES: No deformity, no edema, no tenderness, no joint swelling or clubbing NEUROLOGICAL: Normal cognition, normal motor and sensory exam. - Patient Status Disposition: Home, Self-Care Condition: Fair Functional capacity at discharge: independent ambulation Overall status at discharge: patient is progressing back to baseline - Discharge Instructions Instructions: Gastritis (DC) Follow Up With: Israel Landis DO [Primary Care Provider] - Chayo Hawkins MD [Partnered Physician] - 12/26/18 ()
--- NOTE | 2018-12-12 09:53 | Consult Note ---
Date of Encounter: 12/12/18 Time of Encounter: 09:52 Assessment & Recommendation (1) Adjustment disorder with depressed mood Current visit: Yes Status: Acute Assessment & Recommendation: Patient reports struggling with depression since the sudden of his in March of this year, but denies any psychiatric history prior to this. He has been tried on antidepressants by his PCP; however, he states that these have not helped, and he has been "unable to keep himself from the bottle". He appears to be hopeful that inpatient detox/rehab at the [facility] will help him get back on his feet, and voices that he knows there will be counselors there for him to speak with. He is currently on escitalopram 20mg daily and amitryptaline 50mg at bedtime. At this time, no medication changes are recommended. With patient's recent heavy alcohol use, it is not surprising that he has not noticed any helpful effects related to medication therapy. Further medication adjustments can be considered on an outpatient basis or by providers at the rehab facility he is planning to be discharged to. (2) Bereavement Current visit: Yes Status: Acute (3) Alcohol use disorder Current visit: Yes Status: Acute Assessment & Recommendation: Reports heavy alcohol consumption since his 's unexpected in March. Prior to that, patient reported drinking a "few" beers on a nightly basis, but denies any history of alcohol abuse. He does admit to poor oral intake over the last several months secondary to his increased alcohol use. Consider continued supplementation of thiamine/folic acid/MVI following hospital discharge. Patient is awaiting arrangements for admission to [facility] alcohol detox/rehab facility. History of Present Illness Requesting Physician: Alma Inman MD Reason for consult: Depression since 's ; self-medicating with EtOH History of present illness: Mr. Finney is a 57 year old male with a history of hypertension who presented to the ED with chief complaint of hematemesis. Patient reported heavy alcohol consumption for the last several months since his unexpectedly in March of this year after a "massive stroke". He denies any symptoms of depression or anxiety prior to her , and denies having ever been evaluated by a psychiatrist before. He was trialed on several medications to help with his depression over the last several months; however, he denies any improvement in his symptoms. He states that he "can't seem to stay away from the bottle" since his 's ; subsequently, his alcohol consumption has increased substantially. Prior to this, he reports that he drank a few beers on a nightly basis, but denies any excessive alcohol use. Psychiatry consult was placed by primary team for evaluation with regards to patient's depression. On evaluation this morning, patient endorses the above history, and reports that he is still feeling depressed; however, he reports that he is hopeful that going to the [facility] alcohol rehab will help him get things back on track. He does have a good support system at home in his mom and his sister. He denies any family history of psychiatric illness; however, he does report that his sister was approximately one year prior to his 's , after which she also struggled with depression and subsequent drug use, but is now much improved and doing very well. He denies any SI/HI, hallucinations, or other complaints at this time. CC: Alma Inman MD Past Med Surg Social Fam HX - Past Medical History Medical history: hypertension - Past Psychiatric History Psychiatric history: Reports: depression Past psychiatric history details: Patient denies any psychiatric history or problems with depression prior to his 's in March of this year. Family psychiatric history: No Family History of Suicide: None - Past Surgical History Surgical History: cholecystectomy - Social History Smoking Status: Current every day smoker Smokeless Tobacco Status: No Alcohol use: heavy (DRINKS >= BOTTLE vodka daily) Drug use: marijuana Medications & Allergies Albuterol Sulfate [Proventil Inhaler] 2 puff IH Q4H PRN 01/25/17 [History] Escitalopram [Lexapro] 20 mg PO DAILY 01/25/17 [History] Amitriptyline [Elavil] 50 mg PO HS 12/11/18 [History] Pantoprazole Sodium [Protonix] 40 mg PO DAILY #14 tablet. 12/12/18 [Rx] Allergy/AdvReac Type Severity Reaction Status Date / Time No Known Allergies Allergy Verified 06/28/18 09:31 Review of Systems Constitutional: Reports: weight change Eyes: Denies: eye pain, vision change Ears, Nose, Throat: Denies: ear pain, throat pain, dental pain, hearing loss, congestion Cardiovascular: Denies: chest pain, palpitations, dyspnea on exertion Respiratory: Denies: cough, dyspnea, wheezes Gastrointestinal: Reports: hematemisis (present on hospital admission). Denies: abdominal pain, nausea, vomiting Genitourinary male: Denies: urgency, dysuria, frequency, genital lesions Musculoskeletal: Denies: joint swelling, joint pain Integumentary: Denies: rash, lesions, pruritus Neurological: Denies: headache, weakness, numbness, memory loss Psychiatric: Reports: depression, abnormal sleep pattern, change in appetite. Denies: anxiety, suicidal ideation, homicidal ideation, auditory hallucinations, visual hallucinations, anhedonia, hopelessness Endocrine: Denies: fatigue, heat or cold intolerance Psychiatry Exam - Constitutional Vitals: Temp Pulse Resp BP Pulse Ox 98.4 F 79 18 143/87 94 12/12/18 06:57 12/12/18 06:57 12/12/18 06:57 12/12/18 06:57 12/12/18 06:57 General appearance: age & developmentally appropriate, disheveled, average, thin - Musculoskeletal Strength & Tone: normal for patient (grossly normal on observation) - Psychiatric Patient Orientation: Yes Person, Yes Time, Yes Place Level of alertness: Alert, Follows commands Behavior: calm, cooperative Psychomotor activity: Normal Eye Contact: Minimal Contact Mood Description: Depressed Affect description: congruent with mood, blunted, flat Speech Volume: Normal Speech pattern: normal rate, normal rhythm, normal tone, fluent, spontaneous, appropriate, coherent Language & Vocabulary: consistent with education Thought Process: Linear, Goal Oriented Thought Content: No Suicidal ideation, No Homicidal ideation, No Overt delusions Perceptual Disturbances: No Reacting to internal stimuli, No Auditory hallucinations, No Visual hallucinations Attention Span Ability: Capable of Focused Attention Memory Description: Grossly Intact Patient Reliability: Reliable Historian Fund of knowledge: Yes abstraction ability, Yes aware of current events Intelligence Estimate: Average Judgment: Fair Insight: Partial Results - Labs Labs: Laboratory Last Values WBC 6.2 K/mcL (4.3-11.1) 12/12/18 02:31 RBC 4.92 M/mcL (4.19-5.50) 12/12/18 02:31 Hgb 15.7 g/dL (12.9-16.9) 12/12/18 02:31 Hct 44.4 % (37.5-50.1) 12/12/18 02:31 MCV 90.2 fL (83.0-100.0) 12/12/18 02:31 MCH 31.9 pg (28.0-33.3) 12/12/18 02:31 MCHC 35.4 g/dL (31.6-35.5) 12/12/18 02:31 RDW 12.7 % (11.5-14.5) 12/12/18 02:31 Plt Count 258 K/mcL (140-400) 12/12/18 02:31 MPV 9.3 fL (9.4-12.4) L 12/12/18 02:31 Immature Gran % 0.3 % (0-4) 12/12/18 02:31 Seg Neutrophils % 63.5 % 12/12/18 02:31 Lymphocytes % 25.4 % 12/12/18 02:31 Monocytes % 7.0 % 12/12/18 02:31 Eosinophils % 2.8 % 12/12/18 02:31 Basophils % 1.0 % 12/12/18 02:31 Neutrophils # 3.9 K/mcL (1.6-8.9) 12/12/18 02:31 Lymphocytes # 1.6 K/mcL (0.6-4.6) 12/12/18 02:31 Monocytes # 0.4 K/mcL (0.0-1.3) 12/12/18 02:31 Eosinophils # 0.2 K/mcL (0.0-0.6) 12/12/18 02:31 Basophils # 0.1 K/mcL (0.0-0.2) 12/12/18 02:31 Nucleated RBCs/100 WBC 0.8 /100 WBC (0) H 12/12/18 02:31 PT 10.4 Seconds (9.4-12.1) 12/10/18 20:39 INR 0.9 12/10/18 20:39 APTT 39.7 Seconds (26.0-36.0) H 12/10/18 20:39 Sodium 137 mEq/L (136-145) 12/12/18 02:31 Potassium 3.5 mEq/L (3.5-5.1) 12/12/18 02:31 Chloride 99 mEq/L (98-107) 12/12/18 02:31 Carbon Dioxide 26 mEq/L (23-29) 12/12/18 02:31 BUN 4 mg/dL (6-20) L 12/12/18 02:31 Creatinine 0.54 mg/dL (0.70-1.30) L 12/12/18 02:31 Est GFR ( Amer) > 60 (> 60) 12/12/18 02:31 Est GFR (Non-Af Amer) > 60 (> 60) 12/12/18 02:31 BUN/Creatinine Ratio 7 (6-26) 12/12/18 02:31 Glucose 95 mg/dL (70-105) 12/12/18 02:31 POC Glucose 112 mg/dL (70-99) H 12/11/18 11:34 Calculated Osmolality 281 (280-300) 12/12/18 02:31 Lactic Acid 1.2 mmol/L (0.5-2.2) 12/11/18 00:59 Calcium 8.8 mg/dL (8.6-10.3) 12/12/18 02:31 Total Bilirubin 0.9 mg/dL (0.3-1.0) 12/11/18 05:08 AST 103 Units/L (13-39) H 12/11/18 05:08 ALT 51 Units/L (7-52) 12/11/18 05:08 Alkaline Phosphatase 172 Units/L (34-104) H 12/11/18 05:08 Troponin I < 0.03 ng/mL (< 0.04) 12/11/18 05:08 Serum Total Protein 6.4 g/dL (6.4-8.9) 12/11/18 05:08 Albumin 3.9 g/dL (3.5-5.7) 12/11/18 05:08 Globulin 2.5 g/dL (2.4-3.5) 12/11/18 05:08 Albumin/Globulin Ratio 1.6 (1.1-2.2) 12/11/18 05:08 Lipase 70 Units/L (11-82) 12/10/18 20:39 Vitamin B12 772 pg/mL (250-1100) 12/11/18 11:25 Folate 15.0 ng/mL (3.0-16.0) 12/11/18 11:25 Urine Color Yellow (Yellow) 12/10/18 23:22 Urine Clarity Clear (Clear) 12/10/18 23:22 Urine pH 5.5 pH Units (5.0-8.0) 12/10/18 23:22 Ur Specific Comfort > 1.030 (1.010-1.025) H 12/10/18 23:22 Urine Protein Trace mg/dL (Neg-Trace) 12/10/18 23:22 Urine Glucose (UA) Normal mg/dL (Normal) 12/10/18 23:22 Urine Ketones 80 mg/dL (Negative) H 12/10/18 23:22 Urine Blood Trace (Negative) H 12/10/18 23:22 Urine Nitrite Negative (Negative) 12/10/18 23:22 Urine Bilirubin Negative (Negative) 12/10/18 23:22 Urine Urobilinogen Normal mg/dL (Normal) 12/10/18 23:22 Ur Leukocyte Esterase Negative (Negative) 12/10/18 23:22 Urine Microscopic RBC 0-3 per hpf (0-3) 12/10/18 23:22 Urine Microscopic WBC 0-3 per hpf (0-3) 12/10/18 23:22 Ur Squamous Epith Cells Many per lpf (None-Few) H 12/10/18 23:22 Urine Bacteria None Seen per hpf (None-Few) 12/10/18 23:22 Hyaline Casts None Seen per lpf (None-Few) 12/10/18 23:22 Ur Culture Indicated? NO (NO) 12/10/18 23:22 Blood Type A POSITIVE 12/10/18 20:39 Antibody Screen NEGATIVE 12/10/18 20:39 Consult Discharge Plan - Plan Instructions: Gastritis (DC) Referrals: Israel Landis DO [Primary Care Provider] - Chayo Hawkins MD [Partnered Physician] - 12/26/18 () Prescriptions: Pantoprazole Sodium [Protonix] 40 mg PO DAILY #14 tablet.dr Transmission Status: Received by [facility]/pharmacy #[id number] - Attending Attestation I examined this patient and my medical decision-making was reviewed with the Resident Physician. I agree with the documented findings, disposition and treatment plan as described except to the extent set forth below. Client reports significant depression and heavy alcohol use since unexpectedly in March. However, he denies SI, intent, or plan. Currently takes Lexapro with limited benefit but this is to be expected given his excessive alcohol use. Willing/wanting to try inpatient rehab at the [place]. This would be the best plan as a consulting psychiatrist can see him to try alternative antidepressants once he has been sober for a period. Call if any questions. Will sign off for now.
[2018-12-12 16:18] VITALS: BP 125/88
== END 2018-12-12 19:11 | disposition home or self-care (01) ==
LOC: 3ANU 20:10 → EMEROOARM 20:10 → SUATTDRO 23:39 → 3ANU 12-11 00:40
PROVIDERS: ADMIT Internal Medicine; ATTEND Internal Medicine